=== PATIENT | female | born 1950 | race Caucasian/White ===

== ENCOUNTER 2022-12-20 11:49 | Inpatient (IN) | payer OTHER, MEDICARE ==
[~2022-12-20] VITALS: Ht 167.6 cm; Wt 69.6 kg
[2022-12-20] VITALS (14 sets, daily range): BP systolic 89–120; BP diastolic 53–105
[~2022-12-20 11:49] MED LIST: AMIT75 PO; ESOM20; Fiorinal1 EA PO; GABA300; LEVSOD112; LORA.5; MELO7.5; METO50ER; MONT10T; Oxycontin20 MG PO; PRED20; RISE35; SERT25; TOPI100
[2022-12-20 12:26] LABS: Hematocrit 33.8 % (33.0-51.0); Hemoglobin 12.4 g/dL (11.5-16.0); LYMPHOCYTES ABSOLUTE AUTO 0.51 K/mm3 (0.84-5.20); LYMPHOCYTES PERCENT AUTO 2 % (21-46); MONOCYTES ABSOLUTE AUTO 1.01 K/mm3 (0.16-1.47); MONOCYTES PERCENT AUTO 4 % (4-13); Mean Corpuscular HGB 33.9 pg (26.0-34.0); Mean Corpuscular HGB Conc 36.7 g/dL (31.5-36.5); Mean Corpuscular Volume 92 fL (80-100); Mean Platelet Volume 10.2 fL (9.1-12.4); Platelet Count 283 K/mm3 (150-400); RDW Coefficient Variation 12.5 % (11.7-14.2); RDW Standard Deviation 42.6 fL (35.1-46.3); Red Blood Cell Count 3.66 M/mm3 (3.80-5.20)
[2022-12-20 12:39] LABS: BASOPHILS ABSOLUTE AUTO 0.02 K/mm3 (0.00-0.23); BASOPHILS PERCENT AUTO 0 % (0-2); EOSINOPHILS ABSOLUTE AUTO 0.07 K/mm3 (0.00-0.68); EOSINOPHILS PERCENT AUTO 0 % (0-6); IMMATURE GRAN ABSOLUTE AUTO 0.65 K/mm3 (0.00-0.10); IMMATURE GRAN PERCENT AUTO 3 % (0-1); NEUTROPHILS ABSOLUTE AUTO 22.34 K/mm3 (1.96-9.15); NEUTROPHILS PERCENT AUTO 91 % (41-73)
[2022-12-20 12:56] LABS: Alanine Aminotransfer (ALT/SGP 40 U/L (12-78); Albumin, Blood 2.4 g/dL (3.4-5.0); Albumin/Globulin Ratio 0.6 (0.8-1.8); Alk Phos 281 U/L (50-136); Anion Gap 11 mmol/L (6-16); Aspartate Aminotrans (AST/SGOT 33 U/L (12-37); Bilirubin, Total 0.7 mg/dL (0.1-1.0); Blood Urea Nitrogen 44 mg/dL (8-24); Bun/Creatinine Ratio 34.9 (12.0-20.0); C-REACTIVE PROTEIN, EXT RANGE >19.000 mg/dL (0.000-0.300); CO2, Blood 21 mmol/L (21-32); Calcium, Blood 8.8 mg/dL (8.5-10.1); Chloride, Blood 98 mmol/L (98-108); Creatinine, Blood 1.26 mg/dL (0.40-1.00); Globulin, Blood 4.1 g/dL (2.2-4.0); Glomerular Filtration Rate 45 (60-); Glucose, Blood 111 mg/dL (70-99); Potassium, Blood 3.3 mmol/L (3.5-5.5); Sodium, Blood 130 mmol/L (136-145); Total Protein, Blood 6.5 g/dL (6.4-8.2)
[2022-12-20 13:37] LABS: BAND PERCENT MAN 9 % (0-8); BASOPHILS PERCENT MAN 0 % (0-2); EOSINOPHILS PERCENT MAN 0 % (0-6); LYMPHOCYTES ABSOLUTE MAN 0.49 K/mm3 (0.84-5.20); LYMPHOCYTES PERCENT MAN 2 % (21-46); MONOCYTES ABSOLUTE MAN 0.98 K/mm3 (0.16-1.47); MONOCYTES PERCENT MAN 4 % (4-13); NEUTROPHILS ABSOLUTE MAN 23.12 K/mm3 (1.96-9.15); SEG NEUTROPHILS PERCENT MAN 85 % (41-73); TOTAL CELLS COUNTED 100
[2022-12-20] MEDS ORDERED: IPRATROPIUM BRO15 ML INH (14:38)
[2022-12-20] MEDS ORDERED: ATORVASTATIN CA20 MG PO (14:39)
[2022-12-20] MEDS ORDERED: LEVOTHYROXINE112 M18 PO (14:40)
[2022-12-20] MEDS ORDERED: Buspirone HCl15 MG PO (14:40)
[2022-12-20] MEDS ORDERED: METO50ER PO (14:40)
[2022-12-20] MEDS ORDERED: ZOLOFT10013 PO ×2 (14:40→14:49)
[2022-12-20] MEDS ORDERED: Ventolin/Prove6.7 GM INH (14:44)
[2022-12-20] MEDS ORDERED: NURTEC ODT75 MG PO (14:48)
[2022-12-20 19:43] LABS: Magnesium, Blood 2.1 mg/dL (1.6-2.4)
[2022-12-20 19:49] LABS: Thyroid Stimulating Hormone 1.31 uIU/mL (0.360-4.800)
--- NOTE | 2022-12-20 20:45 | NUR ---
PATIENT ARRIVED TO ICU VIA GURNEY [facility], WITH KEVIN-SYNEPHERINE 20 MCG, AMIODARONE 1 MG/MIN INFUSING. PATIENT TRANSFERRED TO ICU BED USING SLIDER SHEET AND PLACED ON ICU MONITORS. PATIENT HAVING DIFFICULT TIME KEEPING ARMS AND LEGS STILL. PUREWICK REMOVED, PATIENT HAVING DIFFICULTY KEEPING IT IN PLACE. GUIDO CATH PLACED TO KEEP CLOSE EYE ON I&O DUE TO HYPOTENSION AND TO HELP KEEP WOUND TO LEFT BUTTOCK CLEAN AND DRY. WOUND TO LEFT BUTTOCK WITH PACKING HANGING OUT OF SMALL 1 CM INCISION, AREA AROUND WOUND RED, SWOLLEN AND WARM. WOUND DRAINING STRONG SMELLING PUSS AND SEROSANG FLUID, WOUND COVERED WITH FOAM DRESSING. CLARIFIED WITH REGGIE TOURIST CAMP ATTENDANT IV AND PO REPLACEMENT OF POTASSIUM PATIENT NOW IN SINUS RHYTHM, PLAN TO STOP AMIODARONE DRIP IF REMAINS IN SINUS RHYTHM AT CONTROLLED RATE
[2022-12-20 21:41] LABS: U Amphetamine Screen Not Detected; U Barbituate Screen Not Detected; U Benzodiazapine Screen Not Detected; U Buprenorphine Screen Not Detected; U Cannabinoids Screen Not Detected; U Cocaine Screen Not Detected; U Methadone Screen Not Detected; U Methamphetamine Screen Not Detected; U Opiates Screen Not Detected; U Oxycodone Screen Not Detected; U Phencyclidine Screen Not Detected; U Propoxyphene Screen Not Detected
[2022-12-20 21:53] LABS: Source, Urine Foley catheter
[2022-12-20 21:55] LABS: Bilirubin, Urine Neg (Neg); Blood, Urine 2+ (Neg); Glucose Qualitative, Urine Neg (Neg); Ketones, Urine Neg (Neg); Leukocyte Esterase, Urine 3+ (Neg); Nitrite, Urine Neg (Neg); Protein, Urine 2+ (Neg); Urobilinogen, Urine NORM (Normal)
[2022-12-20 21:57] LABS: Appearance, Urine Hazy (Clear); Color, Urine Yellow (P-Yellow)
[2022-12-20 22:02] LABS: White Blood Cells, Urine 50-100 /hpf (0-5)
[2022-12-20 22:03] LABS: Bacteria Many /hpf; Red Blood Cells, Urine 0-2 /hpf (0-2); Squamous Epithelial Cells Few /hpf (Few)
[2022-12-21] VITALS (38 sets, daily range): BP systolic 81–127; BP diastolic 44–90
[2022-12-21 03:20] LABS: Hematocrit 26.9 % (33.0-51.0); Hemoglobin 9.7 g/dL (11.5-16.0); Mean Corpuscular HGB 33.9 pg (26.0-34.0); Mean Corpuscular HGB Conc 36.1 g/dL (31.5-36.5); Mean Corpuscular Volume 94 fL (80-100); Mean Platelet Volume 9.8 fL (9.1-12.4); Platelet Count 224 K/mm3 (150-400); RDW Coefficient Variation 12.8 % (11.7-14.2); Red Blood Cell Count 2.86 M/mm3 (3.80-5.20); White Blood Cell Count 18.76 K/mm3 (4.00-11.30)
[2022-12-21 04:00] LABS: BAND PERCENT MAN 39 % (0-8); BASOPHILS PERCENT MAN 0 % (0-2); EOSINOPHILS PERCENT MAN 0 % (0-6); LYMPHOCYTES ABSOLUTE MAN 0.56 K/mm3 (0.84-5.20); LYMPHOCYTES PERCENT MAN 3 % (21-46); METAMYELOCYTE ABSOLUTE MAN 0.18 K/mm3 (0.00-0.00); METAMYELOCYTE PERCENT MAN 1 % (0-0); MONOCYTES ABSOLUTE MAN 0.37 K/mm3 (0.16-1.47); MONOCYTES PERCENT MAN 2 % (4-13); NEUTROPHILS ABSOLUTE MAN 17.63 K/mm3 (1.96-9.15); SEG NEUTROPHILS PERCENT MAN 55 % (41-73); TOTAL CELLS COUNTED 100
[2022-12-21 04:01] LABS: Albumin, Blood 1.7 g/dL (3.4-5.0); Albumin/Globulin Ratio 0.6 (0.8-1.8); Bilirubin, Total 0.8 mg/dL (0.1-1.0); Bun/Creatinine Ratio 38.9 (12.0-20.0); Calcium, Blood 7.1 mg/dL (8.5-10.1); Creatinine, Blood 0.8 mg/dL (0.40-1.00); Globulin, Blood 2.9 g/dL (2.2-4.0); Potassium, Blood 3.1 mmol/L (3.5-5.5); Total Protein, Blood 4.6 g/dL (6.4-8.2)
--- NOTE | 2022-12-21 06:37 | NUR ---
SUMMARY PATIENT SLEEPING OFF AND ON T/O NIGHT. AWAKENS EASILY TO SLIGHT STIMULI. CONTINUES TO HAVE FREQUENT ROCKING AND MOVEMENT TO HER ARMS AND LEGS. ABLE TO HOLD STILL WITH A LOT OF CONCENTRATION. KEVIN AND AMIO BOTH OFF. DRESSING TO BUTTOCK CD&I, BUT CONTINUES TO HAVE STRONG SMELL WHEN TURNED TO SIDE AND COVERS OFF.
--- NOTE | 2022-12-21 11:45 | NUR ---
PT A/O X4. HAS DISCOMFORT IN BUTTOCKS. PT GOT UP TO BSC TO HAVE A BM AND DRESSING TO BUTTOCKS BECAME SATURATED WITH FOUL SMELLING DISCHARGE FROM WOUND. DRESSING CHANGED. STILL HAS PACKING. PT IS 1-2 PERSON ASSIST OOB. PT REQUESTING TO KEEP HER GUIDO AT THIS MOMENT D/T WOUND. BP STABLE TODAY. HAS BEEN OFF PRESSORS SINCE RELAY SHOP SUPERVISOR. USES CALL LIGHT APPROPRIATELY. TRANSFERED TO MEDICAL FLOOR RM [phone]. REPORT GIVEN TO JACK CARTER.
--- NOTE | 2022-12-21 13:59 | NUR ---
ARRIVAL: PT ARRIVED @1130 VIA BED AND ABLE TO TRANSPORT WITH ONE PERSON ASSIST TO BED. IV'S FLUSHED W/O COMPLICATIONS. PT RECEIVING IV ZOSYN UPON ARRIVAL. ALL BELONGINGS SENT WITH PT. WOUND ASSESSED AND DRESSING CHANGE BY EMMA SMITH AND THIS RN. TELE IN PLACE. ABLE TO MAKE NEEDS KNOWN. WILL CONTINUE TO MONITOR.
--- NOTE | 2022-12-21 18:51 | NUR ---
SHIFT SUMMARY: DRESSING CHANGED ON BUTTOCK PER ORDERS. NEW PACKING AND MEPILEX IN PLACE. PT VERY WEAK TO BSC. IV IN RAC AND LWR FLUSHING WELL FOR IV ABX. PT SLIGHTLY HYPOTENSIVE. CALL LIGHT IN REACH. WILL CONTINUE TO MONITOR.
[2022-12-22 03:07] VITALS: BP 104/68
--- NOTE | 2022-12-22 03:50 | NUR ---
SHIFT SUMMARY. SHIFT HAS BEEN MOSTLY UNREMARKABLE. FOR MANY HOURS EARLY THIS MORNING, PT WAS VERY SOMNOLENT ALTHOUGH HAD DIFFICULT TIME SITTING STILL AND WAS NOT ABLE TO SLEEP MUCH. APPEARED RESTLESS. INQUIRED ABOUT PAIN MULTIPLE TIMES TO WHICH PT DENIED AND REFUSED PRN PAIN MEDICATIONS. PT REMAINED AOX3-4 AND WAS EASILY AROUSABLE BUT REMAINED RESTLESS AND AT THE SAME TIME LETHARGIC. AFTER REPOSITIONING EARLY THIS MORNING, AGAIN INQUIRED ABOUT PAIN TO WHICH PT REPORTED PAIN PRESENT AND REQUESTED PAIN MEDICATION. ADMINISTERED PRN OXYCODONE AFTER WHICH TIME PT HAS BEEN SLEEPING PEACEFULLY IN BED. WITH 2100 MEDICATIONS LAST NIGHT, ADMINISTERED PRN BEDTIME AMBIEN. WONDER IF AMBIEN HAD THIS NEGATIVE EFFECT ON PT CAUSING RESTLESSNESS. EITHER WAY, PT IS NOW RESTING PEACEFULLY IN BED AND SLEEPING SOUNDLY. HAS BEEN PLEASANT, COOPERATIVE WITH CARE THROUGHOUT. GUIDO CATHETER IN PLACE AND DRAINING WELL. DRESSING ON BACKSIDE REMAINS C/D/I AT THIS TIME.CHANGED ON DAY SHIFT PER REPORT. BED LOCKED IN LOWEST POSITION. CALL LIGHT LEFT WITHIN REACH.
[2022-12-22 05:18] LABS: Hematocrit 27.4 % (33.0-51.0); Hemoglobin 9.7 g/dL (11.5-16.0); Mean Corpuscular HGB 33.6 pg (26.0-34.0); Mean Corpuscular HGB Conc 35.4 g/dL (31.5-36.5); Mean Corpuscular Volume 95 fL (80-100); Mean Platelet Volume 9.5 fL (9.1-12.4); Platelet Count 212 K/mm3 (150-400); RDW Coefficient Variation 13.6 % (11.7-14.2); RDW Standard Deviation 47.8 fL (35.1-46.3); Red Blood Cell Count 2.89 M/mm3 (3.80-5.20); White Blood Cell Count 16.31 K/mm3 (4.00-11.30)
[2022-12-22 05:56] LABS: BAND PERCENT MAN 9 % (0-8); BASOPHILS PERCENT MAN 0 % (0-2); EOSINOPHILS PERCENT MAN 0 % (0-6); LYMPHOCYTES ABSOLUTE MAN 0.32 K/mm3 (0.84-5.20); LYMPHOCYTES PERCENT MAN 2 % (21-46); MONOCYTES ABSOLUTE MAN 0.32 K/mm3 (0.16-1.47); MONOCYTES PERCENT MAN 2 % (4-13); NEUTROPHILS ABSOLUTE MAN 15.65 K/mm3 (1.96-9.15); SEG NEUTROPHILS PERCENT MAN 87 % (41-73); TOTAL CELLS COUNTED 100
[2022-12-22 05:59] LABS: Albumin, Blood 1.8 g/dL (3.4-5.0); Albumin/Globulin Ratio 0.6 (0.8-1.8); Bilirubin, Total 0.8 mg/dL (0.1-1.0); Calcium, Blood 8.3 mg/dL (8.5-10.1); Creatinine, Blood 0.63 mg/dL (0.40-1.00); Globulin, Blood 3.1 g/dL (2.2-4.0); Potassium, Blood 3.7 mmol/L (3.5-5.5); Total Protein, Blood 4.9 g/dL (6.4-8.2)
[2022-12-22 07:54] VITALS: BP 100/85
--- NOTE | 2022-12-22 12:47 | NUR ---
WOUND CARE PROVIDED @1230. WOUND CLEANSED AND PACKED. MEPILEX IN PLACE.
[2022-12-22 15:24] VITALS: BP 122/83
--- NOTE | 2022-12-22 19:08 | NUR ---
SHIFT SUMMARY: PT EXTREMELY LETHARGIC THIS SHIFT. PT ABLE TO WAKE FOR MORNING MEDICATIONS BUT WOULD INSTANTLY FALL BACK ASLEEP. EASILY AROUSED BUT MUMBLED WITH SPEECH. WHEN ASKING ORIENTATION QUESTIONS, PT WAS A&O X3-4. COULD NOT REMEMBER DAY OF WEEK BUT KNEW IT WAS DECEMBER. HOSPITALIST AWARE. PT TOOK DOSE OF AMBIEN LAST NIGHT WHICH PT STATES SHE DOES NOT TAKE AT HOME. IV ABX GIVEN PER EMAR. LEFT GUIDO IN PLACE THIS SHIFT DUE TO EXTREME LETHARGY. WOUND ON L. BUTTOCK CHANGED TWICE THIS SHIFT. PT CONSTANTLY SHIFTING SELF IN BED AND MOVING LEGS WHICH RESULTS IN DRESSING COMING LOOSE. NO WOUND NURSE REST OF THE WEEK. CALL LIGHT IN REACH. BED IN LOWEST POSITION. REPORT GIVEN TO ONCOMING RN.
[2022-12-22 19:22] VITALS: BP 96/75
[2022-12-23] VITALS (34 sets, daily range): BP systolic 92–130; BP diastolic 59–99
--- NOTE | 2022-12-23 04:09 | NUR ---
SHIFT SUMMARY. SHIFT HAS BEEN MOSTLY UNREMARKABLE. PT REMAINS VERY SOMNOLENT THROUGHOUT SHIFT BUT IS MOSTLY EASILY AROUSABLE AND IS ORIENTEDX2 WHEN AWAKE. ABLE TO SAFELY TAKE MEDICATIONS, ANSWER QUESTIONS, FOLLOW DIRECTIONS WHEN AWAKE BUT WILL QUICKLY FALL BACK ASLEEP WHEN LEFT ALONE. APPEARS COMFORTABLE IN BED AND CONTINUES TO SAT WELL ON 1 L O2 VIA NC. NO CHANGE IN CONDITION THIS SHIFT. PT REPORTED PAIN EARLY IN SHIFT BUT HAS NOT SINCE. WELL MANAGED VIA EMAR. ABX ADMINISTERED ON SCHEDULE AND WITHOUT DIFFICULTY. PT WAS SPORADICALLY ALTHOUGH NOT CONSISTENTLY CHOKING ON THIN LIQUIDS EARLY IN SHIFT BUT WAS ALSO VERY SOMNOLENT AT TIME, HAVE NOT GIVEN FLUIDS SINCE. WILL MONITOR WHEN CONSUMING FLUIDS UNTIL SHIFT ENDS IN EVENT PROBLEM PERSISTS. GUIDO IN PLACE AND DRAINING WELL. NO COMPLAINTS OF ASSOCIATED PAIN. BED LOCKED IN LOWEST POSITION.CALL LIGHT LEFT WITHIN REACH.
[2022-12-23 05:15] LABS: Hemoglobin 10.3 g/dL (11.5-16.0); Mean Corpuscular HGB 33.3 pg (26.0-34.0); Mean Corpuscular HGB Conc 35.5 g/dL (31.5-36.5); Mean Corpuscular Volume 94 fL (80-100); NRBC ABSOLUTE 0.02 K/mm3 (0.00-0.02); NRBC Auto 0.1 /100 WBC (0.0-0.2); RDW Coefficient Variation 14.4 % (11.7-14.2); RDW Standard Deviation 49.6 fL (35.1-46.3); Red Blood Cell Count 3.09 M/mm3 (3.80-5.20); White Blood Cell Count 19.23 K/mm3 (4.00-11.30)
[2022-12-23 05:34] LABS: Albumin, Blood 1.8 g/dL (3.4-5.0); Albumin/Globulin Ratio 0.5 (0.8-1.8); Bilirubin, Total 0.9 mg/dL (0.1-1.0); Bun/Creatinine Ratio 41.5 (12.0-20.0); Calcium, Blood 8.3 mg/dL (8.5-10.1); Creatinine, Blood 0.67 mg/dL (0.40-1.00); Globulin, Blood 3.7 g/dL (2.2-4.0); Potassium, Blood 3.6 mmol/L (3.5-5.5); Total Protein, Blood 5.5 g/dL (6.4-8.2)
--- NOTE | 2022-12-23 05:36 | NUR ---
WHEN GOING TO GIVE 0600 THYROID MEDICATION, PATIENT WAS NOTICABLY AND SIGNIFICANTLY MORE LETHARGIC THAN IN HOURS PRIOR. UNABLE TO BE AROUSED TO DRINK WATER/TAKE MEDICATION. ATTEMPTED TO AROUSE TO ASSESS ORIENTATION BUT PT WOULD NOT AWAKE ENOUGH TO ANSWER QUESTIONS OR FOLLOW COMMANDS. CHECKED AND CHANGED WOUND DRESSING IT WAS NOT DRY. CALLED TO SHARE CONCERN WITH HOSPITALIST DR. MURRAY. EXPLAINED THAT PT IS MORE LETHARGIC THAN SHE WAS LAST NIGHT/EARLY THIS MORNING AND IS WAS NOT ABLE TO BE ADEQUATELY AROUSED FOR MEDICATION ADMINISTRATION/ORIENTATION ASSESSMENT. 2 L O2 REQUIRED TO MAINTAIN SATURATION. VITALS WNL OUTSIDE OF MILD TACHYCARDIA WHICH HAS BEEN THE CASE OVER TIME FOR HER. DR MURRAY REVIEWED CHART AND NOTED THAT THE LABS INDICATE SEPSIS AND THAT HER BEHAVIOR IS NOT COMPLETELY OUTSIDE OF REALM OF WHAT WOULD BE EXPECTED FOR SEPTIC SHOCK BUT THAT GIVEN HEAVY ABX DOSE PT SHOULD BE IMPROVING AND NOT DETERIORATING. TREVOR NOTED THAT PT HAS NOT HAD IMAGING OF AREA OR PROCEDURE PERFORMED SINCE SHE HAS BEEN HERE. DR MURRAY BELIEVES THAT PT REQUIRES IMAGING OF WOUND TO SEE HOW DEEP IT GOES AND IF THERE IS A DEEPER SOURCE OF SPESIS, AND IF THERE IS THAT A PROCEDURE MAY NEED TO BE PERFORMED TO EXCISE THE SOURCE OF INFECTION. DR MURRAY NOTED THAT HE WILL DISCUSS WITH DR ELVIA ESPARZA BUT THERE IS NOTHING ELSE TO BE DONE AT THIS TIME. WILL CONTINUE TO MONITOR AND INFORM HOSPITALIST OF ANY FURTHER CHANGES WITH PT.
[2022-12-23 06:32] LABS: BAND PERCENT MAN 6 % (0-8); BASOPHILS PERCENT MAN 0 % (0-2); EOSINOPHILS PERCENT MAN 0 % (0-6); LYMPHOCYTES ABSOLUTE MAN 1.34 K/mm3 (0.84-5.20); LYMPHOCYTES PERCENT MAN 7 % (21-46); MONOCYTES ABSOLUTE MAN 0.19 K/mm3 (0.16-1.47); MONOCYTES PERCENT MAN 1 % (4-13); NEUTROPHILS ABSOLUTE MAN 17.69 K/mm3 (1.96-9.15); SEG NEUTROPHILS PERCENT MAN 86 % (41-73); TOTAL CELLS COUNTED 100
[2022-12-23 06:38] LABS: Platelet Count 205 K/mm3 (150-400)
--- NOTE | 2022-12-23 08:04 | NUR ---
PATIENT OFF FLOOR TO CT AT 08
[2022-12-23 10:55] LABS: Source, Urine Clean Catch
[2022-12-23 11:23] LABS: Appearance, Urine Clear (Clear); Bilirubin, Urine Neg (Neg); Blood, Urine 4+ (Neg); Color, Urine Yellow (P-Yellow); Glucose Qualitative, Urine Neg (Neg); Ketones, Urine Neg (Neg); Leukocyte Esterase, Urine Neg (Neg); Nitrite, Urine Neg (Neg); Protein, Urine 2+ (Neg); Specific Gravity, Urine 1.015 (1.003-1.022); Urobilinogen, Urine NORM (Normal)
[2022-12-23 11:32] LABS: Mucus Light (0-Heavy); Squamous Epithelial Cells Rare /hpf (Few)
[2022-12-23 11:33] LABS: Amorphous Light (0-Heavy); Bacteria Rare /hpf; Red Blood Cells, Urine 25-50 /hpf (0-2); White Blood Cells, Urine 0-2 /hpf (0-5); Yeast/Fungi Urine Few /hpf
--- NOTE | 2022-12-23 13:26 | NUR ---
PATIENT OFF FLOOR TO SURGERY WITH EMMA SMITH VIA CART AT 1320 12/23/22, MARILOU LONG JUST PRIOR TO LEAVING.
--- NOTE | 2022-12-23 13:36 | NUR ---
PT BROUGHT TO [facility] ON GURNEY. 02 AT 5L VIA MASK. PT IS ONLY RESPONSIVE TO PAIN. PER AUGUST RN PT WAS HARD TO UNDERSTAND THIS AM ON 1ST ASSESSMENT AND WAS ORIENTED TO SELF. PT NOW ONLY RESPONDING TO STERNAL RUB. MONITORS PUT ON ON, IVF WIDE OPEN AND NARCAN GIVEN 1335 DR. SHANKAR AT FOR EVAL. PT IS NOW TALKING AND ANSWERING APPROPRIATELY PT IS STILL GROGGY. OK TO GIVE PT 250 ML BOLUS
--- NOTE | 2022-12-23 17:16 | NUR ---
ARRIVAL TO ICU PT ARRIVES TO ICU FROM OR. PT S/P DEBRIDEMENT OF LEFT BUTTOCK. PT ARRIVES INTUBATED. 7.0 ETT/22 AT [facility]. LUNGS CLEAR. SCANT THIN CLEAR SECRETIONS FROM ETT. VENT SETTINGS AC/VC 14/400/5/40%. PROPOFOL STARTED FOR SEDATION. RASS -4. SR, RATE 90'S. BP STABLE. WOUND TO L GLUT DRESSED FROM OR, CALCIUM ALGINATE, KERLEX AND TAPE. RECTAL TUBE IN PLACE. GUIDO PATENT, DRAINING ROSETTA URINE TO GRAVITY. PIV X 2. DR DESIR AND DR GAN ROUNDED. WILL CONTINUE TO MONITOR.
[2022-12-23 17:34] LABS: PCO2 Arterial 46.8 mmHg (35-45); PO2 Arterial 96.8 mmHg (80-100); pH Blood Arterial 7.19 (7.35-7.45)
--- NOTE | 2022-12-23 19:00 | NUR ---
AFIB PT HAD RUN OF AFIB c RVR FOR APPT [address] DESIR NOTIFED. PT SPONT RESOLVED AND RETURNED TO NSR RATE 70-80'S PRIOR TO ADMINSTRATION OF AMIODORONE. AMIODORONE HELD AT THIS TIME. DR DESIR AWARE.
--- NOTE | 2022-12-23 21:20 | NUR ---
ASSUMED CARE AT 1900 PATIENT IS INTUBATED AND SEDATED ON PROPOFOL. LOCALIZES TO PAIN AND MOVE ALL EXTREMITIES. MEDICATED FOR PAIN PER EMAR. 02 SATS 99% ON VENT RR 18, VENT SETTING AC VC 18/400/5/35%. LS CLEAR. HR SR 90s, BP STABLE. GUIDO PATENT AND DRAINING TO GRAVITY. RECTAL TUBE IN PLACE, MINIMAL LIQUID BROWN. OG TO LIS, SCANY OUTPUT. PATIENT REPOSITIIONED AND ORAL CARE DONE. SEE SHIFT ASSESSMENT FOR MORE INFORMATION.
[2022-12-24] VITALS (69 sets, daily range): BP systolic 90–164; BP diastolic 61–130
[2022-12-24 03:47] LABS: Hematocrit 24.5 % (33.0-51.0); Hemoglobin 8.5 g/dL (11.5-16.0); Mean Corpuscular HGB 33.6 pg (26.0-34.0); Mean Corpuscular HGB Conc 34.7 g/dL (31.5-36.5); Mean Corpuscular Volume 97 fL (80-100); Mean Platelet Volume 9.7 fL (9.1-12.4); NRBC ABSOLUTE 0.03 K/mm3 (0.00-0.02); NRBC Auto 0.2 /100 WBC (0.0-0.2); Platelet Count 152 K/mm3 (150-400); RDW Coefficient Variation 15.3 % (11.7-14.2); RDW Standard Deviation 53.9 fL (35.1-46.3); Red Blood Cell Count 2.53 M/mm3 (3.80-5.20); White Blood Cell Count 12.24 K/mm3 (4.00-11.30)
[2022-12-24 04:12] LABS: BAND PERCENT MAN 22 % (0-8); BASOPHILS PERCENT MAN 0 % (0-2); EOSINOPHILS PERCENT MAN 0 % (0-6); LYMPHOCYTES ABSOLUTE MAN 0.97 K/mm3 (0.84-5.20); LYMPHOCYTES PERCENT MAN 8 % (21-46); METAMYELOCYTE ABSOLUTE MAN 0.12 K/mm3 (0.00-0.00); METAMYELOCYTE PERCENT MAN 1 % (0-0); MONOCYTES PERCENT MAN 0 % (4-13); NEUTROPHILS ABSOLUTE MAN 11.13 K/mm3 (1.96-9.15); SEG NEUTROPHILS PERCENT MAN 69 % (41-73); TOTAL CELLS COUNTED 100
--- NOTE | 2022-12-24 06:26 | NUR ---
SHIFT SUMMARY PATIENT REMAINS INTUBATED AND SEDATED ON PROPOFOL. NO CHNAGES IN VENT SETTINGS. HR SR 90s-105. BP STABLE. MEDICATED FOR PAIN PRN. BANDAGE C/D/I TO LEFT BUTTOCKS. GUIDO PATENT AND DRAINING TO GRAVITY. RECTAL TUBE WITH SCANT OUTPUT. MEDICATED FOR PAIN FREQUENTLY THROUGH THE NIGHT. REPOSITION FLAT AND TO RIGHT SIDE TO KEEP PRESSURE OFF LEFT SIDE. NO ACUTE CHANGES
[2022-12-24 06:54] LABS: Albumin, Blood 1.5 g/dL (3.4-5.0); Albumin/Globulin Ratio 0.5 (0.8-1.8); Bilirubin, Total 0.9 mg/dL (0.1-1.0); Calcium, Blood 8.2 mg/dL (8.5-10.1); Creatinine, Blood 0.69 mg/dL (0.40-1.00); Globulin, Blood 3.2 g/dL (2.2-4.0); Phosphorus, Blood 3.5 mg/dL (2.5-4.9); Potassium, Blood 3.5 mmol/L (3.5-5.5); Total Protein, Blood 4.7 g/dL (6.4-8.2)
[2022-12-24 08:18] LABS: Base Excess Venous -7.3 mmol/L; PCO2 Venous 37.2 mmHg (38-42); pH Blood Venous 7.32 (7.34-7.37)
--- NOTE | 2022-12-24 17:33 | NUR ---
SUMMARY PT EXTUBATED AT 1220 TODAY. PT IS ABLE TO OPEN HER EYE'S BRIEFLY TO NAME BUT QUICKLY FALLS BACK TO SLEEP. PT STARTING TO BE MORE RESTLESS IN BED BUT DOES NOT RESPOND TO VERBAL WHEN ASKED IF IN PAIN. MOVES ALL EXTREMITIES SPONTANEOUSLY. DOWN TO 2L NC. WOUND DRESSING CLEAN AND INTACT. THIS AM PT WAS HAVING FREQUENT PAC'S AND POSSIBLEY GOING INTO AFIB AT TIMES FOR BRIEF PERIODS BUT THAT HAS STOPPED THIS AFTERNOON AND IS ST 110-120. DR. TOBAR MADE AWARE OF HR THIS AM. NO OTHER CHANGES THIS SHIFT.
[2022-12-24 20:14] LABS: Base Excess Venous -4.5 mmol/L; PCO2 Venous 35.9 mmHg (38-42); pH Blood Venous 7.37 (7.34-7.37)
--- NOTE | 2022-12-24 21:25 | NUR ---
ASSUMED CARE AT 1900 PATIENT LOCALIZES TO PAINFUL STIMULI, NO WORDS, UNABLE TO OPEN EYES OR FOLLOW COMMANDS. 02 SATS 98% ON 2L VIA NC, RR 20s, SNORING AT TIMES. VBG DONE AND IMPROVING. HR ST 120s, BP STABLE. GUIDO PATENT AND DRAINING TO GRAVITY. RECTAL TUBE IN PLACE, SCANT OUTPUT. DRESSING TO LEFT BUTTOCKS C/D/I. SEE SHIFT ASSESSMENT FOR MORE INFORMATION.
[2022-12-25] VITALS (33 sets, daily range): BP systolic 116–150; BP diastolic 79–114
[2022-12-25 04:07] LABS: Hematocrit 26.8 % (33.0-51.0); Hemoglobin 9.2 g/dL (11.5-16.0); Mean Corpuscular HGB 33.2 pg (26.0-34.0); Mean Corpuscular HGB Conc 34.3 g/dL (31.5-36.5); Mean Corpuscular Volume 97 fL (80-100); Mean Platelet Volume 10.1 fL (9.1-12.4); NRBC ABSOLUTE 0.14 K/mm3 (0.00-0.02); NRBC Auto 0.8 /100 WBC (0.0-0.2); Platelet Count 135 K/mm3 (150-400); RDW Coefficient Variation 15.2 % (11.7-14.2); Red Blood Cell Count 2.77 M/mm3 (3.80-5.20); White Blood Cell Count 16.97 K/mm3 (4.00-11.30)
[2022-12-25 04:54] LABS: Albumin, Blood 1.8 g/dL (3.4-5.0); Albumin/Globulin Ratio 0.5 (0.8-1.8); Bun/Creatinine Ratio 40.8 (12.0-20.0); Calcium, Blood 8.3 mg/dL (8.5-10.1); Creatinine, Blood 0.79 mg/dL (0.40-1.00); Globulin, Blood 3.6 g/dL (2.2-4.0); Potassium, Blood 3.7 mmol/L (3.5-5.5); Total Protein, Blood 5.4 g/dL (6.4-8.2)
[2022-12-25 05:26] LABS: BAND PERCENT MAN 1 % (0-8); BASOPHILS PERCENT MAN 0 % (0-2); EOSINOPHILS PERCENT MAN 0 % (0-6); LYMPHOCYTES ABSOLUTE MAN 0.84 K/mm3 (0.84-5.20); LYMPHOCYTES PERCENT MAN 5 % (21-46); METAMYELOCYTE ABSOLUTE MAN 0.33 K/mm3 (0.00-0.00); METAMYELOCYTE PERCENT MAN 2 % (0-0); MONOCYTES ABSOLUTE MAN 0.33 K/mm3 (0.16-1.47); MONOCYTES PERCENT MAN 2 % (4-13); NEUTROPHILS ABSOLUTE MAN 15.44 K/mm3 (1.96-9.15); SEG NEUTROPHILS PERCENT MAN 90 % (41-73); TOTAL CELLS COUNTED 100
--- NOTE | 2022-12-25 06:14 | NUR ---
SHIFT SUMMARY NO CHANGE IN MENTAL STATUS SINCE START OF SHIFT, OPENS EYES AND LOCALIZES TO PAIN. UNABLE TO FOLLOW COMMANDS. 02 SATS 97% ON 2L VIA NC. LS COARSE AT TIMES, NO SECRETIONS SUCTIONED, CHEST X RAY DONE. HR ST 120s, BP STABLE. WOUND DRESSING C/D/I. GUIDO PATENT AND DRAINING TO GRAVITY. RECTAL TUBE IN PLACE. PATIENT REPOSITIONED Q2 HOURS.
[2022-12-25 09:44] LABS: PCO2 Arterial 34.9 mmHg (35-45); PO2 Arterial 104 mmHg (80-100)
--- NOTE | 2022-12-25 10:58 | NUR ---
WOUND CARE TOOK DRESSING DOWN. CLEANSED WITH WOUND BRICK SETTER OPERATOR, NEW PHOTOS TAKEN, PACKED WITH CALCIUM ALGINATE, SECURED WITH 4X4'S THEN ABD PAD AND TAPE. PT MOANS WITH WOUND CARE.
--- NOTE | 2022-12-25 12:31 | NUR ---
DOBHOFF PLACED PER DR. GAN. CONFIRMED WITH XRAY BY DR. TOBAR AND OK TO USE. STARTED ON VHP AT 30ML/HR. SPOKE WITH DR. GAN ABOUT STARTING LACTULOSE HER AMMONIA IS ELEVATED, NEW ORDERS RECEIVED. PT TAKEN TO CT THIS AM FOR HEAD, CHEST, ABD, AND PELVIS. PT ONLY RESPONDS TO PAINFUL STIMULI WITH MOAN. ABG DONE AND UNREMARKABLE.
[2022-12-25 13:16] LABS: Hemoglobin 9.2 g/dL (11.5-16.0); Mean Corpuscular HGB 33.2 pg (26.0-34.0); Mean Corpuscular HGB Conc 34.1 g/dL (31.5-36.5); Mean Corpuscular Volume 98 fL (80-100); Mean Platelet Volume 10.6 fL (9.1-12.4); NRBC ABSOLUTE 0.18 K/mm3 (0.00-0.02); Platelet Count 129 K/mm3 (150-400); RDW Coefficient Variation 15.4 % (11.7-14.2); RDW Standard Deviation 54.4 fL (35.1-46.3); Red Blood Cell Count 2.77 M/mm3 (3.80-5.20); White Blood Cell Count 17.46 K/mm3 (4.00-11.30)
[2022-12-25 13:37] LABS: BAND PERCENT MAN 1 % (0-8); BASOPHILS PERCENT MAN 0 % (0-2); EOSINOPHILS PERCENT MAN 0 % (0-6); LYMPHOCYTES ABSOLUTE MAN 1.04 K/mm3 (0.84-5.20); LYMPHOCYTES PERCENT MAN 6 % (21-46); MONOCYTES ABSOLUTE MAN 0.52 K/mm3 (0.16-1.47); MONOCYTES PERCENT MAN 3 % (4-13); MYELOCYTE ABSOLUTE MAN 0.69 K/mm3 (0.00-0.00); MYELOCYTE PERCENT MAN 4 % (0-0); NEUTROPHILS ABSOLUTE MAN 15.19 K/mm3 (1.96-9.15); SEG NEUTROPHILS PERCENT MAN 86 % (41-73); TOTAL CELLS COUNTED 100
[2022-12-25 13:58] LABS: Albumin, Blood 1.9 g/dL (3.4-5.0); Albumin/Globulin Ratio 0.5 (0.8-1.8); Bilirubin, Total 1.1 mg/dL (0.1-1.0); Calcium, Blood 8.3 mg/dL (8.5-10.1); Creatinine, Blood 0.7 mg/dL (0.40-1.00); Globulin, Blood 3.5 g/dL (2.2-4.0); Potassium, Blood 3.5 mmol/L (3.5-5.5); Total Protein, Blood 5.4 g/dL (6.4-8.2)
--- NOTE | 2022-12-25 18:06 | NUR ---
SUMMARY PT IS ONLY RESPONSIVE TO PAINFUL STIMULI BY MOANING. VITALS HAVE BEEN STABLE. DOBHOFF PLACED FOR NUTRITION AND MEDS. TOLERATING TUBE FEEDING. LACTULOSE STARTED TODAY FOR INCREASED AMMONIA. ONLY SMALL AMT OF CLEAR LIQUID FROM RECTAL TUBE SO FAR. DUE TO WOUND RECTAL TUBE AND GUIDO ARE STILL NECESSARY. WOUND CARE DONE PER ORDERS. NEW PHOTOS TAKEN AND DR. TOTH CAME BY THIS AFTERNOON. DR. GAN WAS ABLE TO FIND AN ACCEPTING DOCTOR AT [facility] FOR COMPLEX WOUND MANAGEMENT. FAMILY IS AT BEDSIDE AND HAVE BEEN UPDATED BY DR. AGN.
--- NOTE | 2022-12-25 19:00 | NUR ---
ASSUMED CARE ASSUMED CARE OF PATIENT. PT CONTINUES TO BE RESPONSIVE ONLY TO NOXIOUS STIMULI. WITHDRAWS ALL EXTREMITIES TO PAIN. MINIMAL SPONTANEOUS MOVEMENT NOTED. MOANS OCCASIONALLY. NO OTHER VERBAL RESPONSE. MONITOR SHOWS ST, RATE 100-110s. BP STABLE. O2 2L NC- SATS STABLE. RESPIRATIONS ARE TACHYPNEIC AND USE OF ACCESSORY MUSCLES NOTED. RECTAL TUBE IN PLACE- NO STOOL YET. GUIDO PATENT AND DRAINING DARK YELLOW URINE. SACRAL DRESSINGS C/D/I AT THIS TIME. SEE SHIFT ASSESSMENT FOR FULL ASSESSMENT.
[2022-12-25 20:20] LABS: Hematocrit 26.7 % (33.0-51.0); Hemoglobin 9.1 g/dL (11.5-16.0); Mean Corpuscular HGB 33.6 pg (26.0-34.0); Mean Corpuscular HGB Conc 34.1 g/dL (31.5-36.5); Mean Corpuscular Volume 99 fL (80-100); NRBC ABSOLUTE 0.35 K/mm3 (0.00-0.02); NRBC Auto 2.2 /100 WBC (0.0-0.2); Platelet Count 119 K/mm3 (150-400); RDW Coefficient Variation 15.7 % (11.7-14.2); RDW Standard Deviation 56.9 fL (35.1-46.3); Red Blood Cell Count 2.71 M/mm3 (3.80-5.20); White Blood Cell Count 15.81 K/mm3 (4.00-11.30)
[2022-12-25 20:58] LABS: BAND PERCENT MAN 1 % (0-8); BASOPHILS PERCENT MAN 0 % (0-2); EOSINOPHILS PERCENT MAN 0 % (0-6); LYMPHOCYTES ABSOLUTE MAN 1.42 K/mm3 (0.84-5.20); LYMPHOCYTES PERCENT MAN 9 % (21-46); MONOCYTES ABSOLUTE MAN 0.31 K/mm3 (0.16-1.47); MONOCYTES PERCENT MAN 2 % (4-13); MYELOCYTE ABSOLUTE MAN 0.63 K/mm3 (0.00-0.00); MYELOCYTE PERCENT MAN 4 % (0-0); NEUTROPHILS ABSOLUTE MAN 13.43 K/mm3 (1.96-9.15); SEG NEUTROPHILS PERCENT MAN 84 % (41-73); TOTAL CELLS COUNTED 100
[2022-12-25 21:13] LABS: Albumin, Blood 1.8 g/dL (3.4-5.0); Albumin/Globulin Ratio 0.5 (0.8-1.8); Calcium, Blood 8.2 mg/dL (8.5-10.1); Creatinine, Blood 0.68 mg/dL (0.40-1.00); Globulin, Blood 3.5 g/dL (2.2-4.0); Potassium, Blood 3.4 mmol/L (3.5-5.5); Total Protein, Blood 5.3 g/dL (6.4-8.2)
[2022-12-26] VITALS (36 sets, daily range): BP systolic 123–157; BP diastolic 85–113
--- NOTE | 2022-12-26 00:45 | NUR ---
INCREASED RESP DISTRESS PT TACHYPNEIC, RR 30s. INCREASED USE OF ACCESSORY MUSCLES NOTED. LUNGS WITH FINE AND COARSE CRACKLES T/O. O2 2L NC- SATS STABLE. DR. LOVE NOTIFIED- NEW ORDERS RECEIVED TO STOP IV FLUIDS AND TO GIVE IV LASIX.
[2022-12-26 03:50] LABS: Hematocrit 30.7 % (33.0-51.0); Hemoglobin 10.5 g/dL (11.5-16.0); Mean Corpuscular HGB 33.4 pg (26.0-34.0); Mean Corpuscular HGB Conc 34.2 g/dL (31.5-36.5); Mean Corpuscular Volume 98 fL (80-100); Mean Platelet Volume 11.4 fL (9.1-12.4); NRBC ABSOLUTE 0.38 K/mm3 (0.00-0.02); Platelet Count 141 K/mm3 (150-400); RDW Coefficient Variation 15.5 % (11.7-14.2); RDW Standard Deviation 54.8 fL (35.1-46.3); Red Blood Cell Count 3.14 M/mm3 (3.80-5.20); White Blood Cell Count 19.25 K/mm3 (4.00-11.30)
[2022-12-26 04:12] LABS: BAND PERCENT MAN 5 % (0-8); BASOPHILS PERCENT MAN 0 % (0-2); EOSINOPHILS PERCENT MAN 0 % (0-6); LYMPHOCYTES ABSOLUTE MAN 2.31 K/mm3 (0.84-5.20); LYMPHOCYTES PERCENT MAN 12 % (21-46); METAMYELOCYTE ABSOLUTE MAN 0.38 K/mm3 (0.00-0.00); METAMYELOCYTE PERCENT MAN 2 % (0-0); MONOCYTES ABSOLUTE MAN 0.38 K/mm3 (0.16-1.47); MONOCYTES PERCENT MAN 2 % (4-13); MYELOCYTE ABSOLUTE MAN 0.38 K/mm3 (0.00-0.00); MYELOCYTE PERCENT MAN 2 % (0-0); NEUTROPHILS ABSOLUTE MAN 15.78 K/mm3 (1.96-9.15); SEG NEUTROPHILS PERCENT MAN 77 % (41-73); TOTAL CELLS COUNTED 100
[2022-12-26 04:13] LABS: Magnesium, Blood 1.7 mg/dL (1.6-2.4)
[2022-12-26 04:15] LABS: Albumin, Blood 2.1 g/dL (3.4-5.0); Albumin/Globulin Ratio 0.5 (0.8-1.8); Bilirubin, Total 1.3 mg/dL (0.1-1.0); Bun/Creatinine Ratio 38.2 (12.0-20.0); Calcium, Blood 8.3 mg/dL (8.5-10.1); Creatinine, Blood 0.89 mg/dL (0.40-1.00); Globulin, Blood 4.1 g/dL (2.2-4.0); Potassium, Blood 2.9 mmol/L (3.5-5.5); Total Protein, Blood 6.2 g/dL (6.4-8.2)
--- NOTE | 2022-12-26 06:05 | NUR ---
SHIFT SUMMARY CONTINUES TO BE RESPONSIVE ONLY TO NOXIOUS STIMULI. OCCASIONALLY MOANS, NO OTHER VERBAL RESPONSE. WITHDRAWS EXTREMITIES TO NOXIOUS STIMULI. MINIMAL SPONTANEOUS MOVEMENT NOTED. REPOSITIONED Q2H. BP STABLE. HR 120s THIS AM. TMAX 99.9F. O2 2L NC- SATS STABLE. CONTINUES WITH TACHYPNEA AND SLIGHTLY LABORED BREATHING. NT SUCTIONED ONCE DURING SHIFT- MODERATE AMOUNT WHITE SPUTUM. DOBHOFF WITH VITAL HIGH PROTEIN AT GOAL RATE OF 30MLS/HR. 30ML H20 FLUSH Q4H. RECTAL TUBE IN PLACE- NO DRAINAGE. GUIDO PATENT AND DRAINING TO GRAVITY- 4500 MLS TOTAL DURING SHIFT. LASIX 60MG IV GIVEN X 1 AND IVF STOPPED D/T INCREASE CRACKLES AND WHEEZING IN LUNGS. SACRAL/BUTTOCK DRSG D/I. RECEIVING KPHOS AND MAGNESIUM REPLACEMENTS THIS AM. WILL REPORT TO ONCOMING RN WHEN AVAILABLE.
--- NOTE | 2022-12-26 18:13 | NUR ---
SUMMARY PT MOANS TO PAINFUL STIMULI AND WILL WITHDRAW FROM PAIN. DIFFICULT TO DO PO CARE BECAUSE SHE CLAMPS MOUTH CLOSED. WILL MOVE HER HEAD SIDE TO SIDE SPONTANEOUSLY. DR. TOTH BY TO SEE PT. WOUND CARE DONE WITH HIM AT BEDSIDE. SIGNIFICANT TUNNELING IN LOWER PORTION OF WOUND. LOTS OF SLOUGH. SEE PHOTOS FROM 12/25/22. TOLERATING TUBE FEEDS. HAS RECTAL TUBE TO PROTECT WOUND. PT'S AMMONIA IS HIGH THEREFORE PT IS REQUIRING LACTULOSE. ONLY SM AMT OF CLEAR LIQUID FROM RECTAL TUBE TODAY. AWAITING A BED AT [facility] FOR COMPLEX WOUND MANAGEMENT.
[2022-12-26 19:21] LABS: Vancomycin, Trough 13.4 ug/mL (5.0-10.0)
--- NOTE | 2022-12-26 21:01 | NUR ---
ASSUMED CARE OF PT AT 1915 BEDSIDE REPORT RECIEVED FROM EMMA ZAMORA. PT OPENS EYES TO VOICE AND TURNS HEAD SIDE TO SIDE, DOES NOT FOLLOW ANY COMMANDS. IS ON THE PIPER INSTALLER, V/S STABLE, ST WITH OCCASIONAL PVC'S. 2L NC TO KEEP O2 SAT > 94%. LUNGS COARSE/DIM BASES. DOBHOFF IN PLACE, VITAL HP RUNNING AT 30ML/HR (GOAL). DIETARY CONSULT IN, MEDICATIONS ADMINISTERED VIA DOBHOFF, PT TOLERATED WELL. BS HYPOACTIVE, RECTAL TUBE IN PLACE, SMALL AMOUNT OF CLEAR LIQUID VISUALIZED IN TUBE. GUIDO IN PLACE DRAINING CLEAR YELLOW URINE. REPOSITIONED WITH ATTEMPT TO KEEP PRESSURE OFF OPEN AREA OF BUTTOCK. DEPENDENT EDEMA NOTED TO BILAT ARMS, PURPLE DISCOLORATION TO TIPS OF TOES WITH CAP REFILL > [address] OVER DEBRIDED AREA OF BUTTOCK. PIV LAC SL, FLUSHES WELL. PG RIGHT UPPER ARM, INFUSING. NO FAMILY AT BEDSIDE.
[2022-12-27] VITALS (27 sets, daily range): BP systolic 107–148; BP diastolic 76–109
[2022-12-27 03:56] LABS: BASOPHILS ABSOLUTE AUTO 0.07 K/mm3 (0.00-0.23); BASOPHILS PERCENT AUTO 0 % (0-2); EOSINOPHILS PERCENT AUTO 0 % (0-6); Hematocrit 31.4 % (33.0-51.0); Hemoglobin 10.6 g/dL (11.5-16.0); IMMATURE GRAN ABSOLUTE AUTO 0.54 K/mm3 (0.00-0.10); IMMATURE GRAN PERCENT AUTO 3 % (0-1); LYMPHOCYTES ABSOLUTE AUTO 1.58 K/mm3 (0.84-5.20); LYMPHOCYTES PERCENT AUTO 10 % (21-46); MONOCYTES ABSOLUTE AUTO 0.75 K/mm3 (0.16-1.47); MONOCYTES PERCENT AUTO 5 % (4-13); Mean Corpuscular HGB 32.7 pg (26.0-34.0); Mean Corpuscular HGB Conc 33.8 g/dL (31.5-36.5); Mean Corpuscular Volume 97 fL (80-100); NEUTROPHILS ABSOLUTE AUTO 13.45 K/mm3 (1.96-9.15); NEUTROPHILS PERCENT AUTO 82 % (41-73); NRBC Auto 1.8 /100 WBC (0.0-0.2); Platelet Count 156 K/mm3 (150-400); RDW Coefficient Variation 14.9 % (11.7-14.2); RDW Standard Deviation 52.4 fL (35.1-46.3); Red Blood Cell Count 3.24 M/mm3 (3.80-5.20); White Blood Cell Count 16.39 K/mm3 (4.00-11.30)
[2022-12-27 04:19] LABS: Magnesium, Blood 1.8 mg/dL (1.6-2.4)
[2022-12-27 04:33] LABS: Albumin, Blood 1.7 g/dL (3.4-5.0); Albumin/Globulin Ratio 0.5 (0.8-1.8); Bilirubin, Total 1.1 mg/dL (0.1-1.0); Calcium, Blood 7.9 mg/dL (8.5-10.1); Creatinine, Blood 0.72 mg/dL (0.40-1.00); Globulin, Blood 3.3 g/dL (2.2-4.0); Phosphorus, Blood 1.7 mg/dL (2.5-4.9); Potassium, Blood 2.4 mmol/L (3.5-5.5)
--- NOTE | 2022-12-27 05:59 | NUR ---
END OF SHIFT SUMMARY PT REMAINS UNRESPONSIVE EVEN TO PAINFUL STIMULI. OPENS EYES SPONTANEOUSLY. V/S STABLE, CONTINUES 2L VIA NC. DOBHOFF IN PLACE, VITAL HP CONTINUES AT 30ML/HR (GOAL). GUIDO PATENT AND DRAINING CLEAR YELLOW URINE. SKIN UNCHANGED, DRESSING IN PLACE TO LEFT BUTTOCK. PT TURNED EVERY 2 HOURS TO MAINTAIN EXISTING SKIN INTEGRITY AND FOR COMFORT. CALL PLACED TO LEGACY BY PHARMACIST AIDE TO INQUIRE ABOUT BED AVAILABILITY, CONFIRMATION MADE THAT PT IS ON WAIT LIST BUT NO BEDS AVAILABLE. PG IN PLACE, UNABLE TO DRAW, BRAND MARKETING COORDINATOR COLLECTED AM LABS. MAG 1.8, K 2.4, OC CONTATED, ORDERS RECEIVED AND REPLACEMENT STARTED ORDERED. NO FAMILY AT BEDSIDE.
[2022-12-27 11:13] LABS: PCO2 Arterial 44.2 mmHg (35-45); PO2 Arterial 102 mmHg (80-100)
--- NOTE | 2022-12-27 12:36 | NUR ---
LAYA HAS BEEN BREATHING SHALLOW AND GURGLY SINCE MY ASSUMPTION OF CARE THIS AM. SHE HAS NOT RESPONDED BY LOOKING AT SOUND, FOLLOWING COMMANDS, RESISTING MOVEMENT. SHE HAS BEEN DIFFICULT TO GET TO COUGH, LOTS OF ORAL CARE COMPLETED. PT IS CLAMMY AND DIAPHORETIC, SKIN IS PALE, TIPS OF TOES PURPLE. PT IS FLACCID WITH TURNS, ARMS ELEVATED, PT ROTATED BETWEEN HARD RIGHT TURN AND SOFT RIGHT TURN TO KEEP HER OFF THE LEFT BUTTOCKS. SHE WAS GETTING TF VIA DOBBHOFF, IT HAS CLOGGED AND EFFORTS MADE TO UNCLOG. GUIDO WITH GOOD OUTPUT, RECTAL TUBE WITH AIR RETURN ONLY. GRANDSON HERE TO VISIT, PALLIATIVE CARE RN EDWIN, PHONED TO SON. NIECE AND NEPHEW HERE NOW.
--- NOTE | 2022-12-27 12:54 | NUR ---
According to ICU staff and Dr. Pang, pt has no gag reflex when suction done. Pt is non-responsive, and dental hygienist noted no response to commands, does bite down on tools but no meaninful response. Spoke by phone with pt's son Marco, who is pt's decision maker. He states he noted pt not responsive during visit on Tuesday, and request changing pt's code status to DNR/DNI. He requests a call from Dr. Pang around 1530 today, as he would like to speak with his and daughter now, and then discuss making pt's status "comfort care". Received v/o from Dr. Pang to change pt's code status, and she states she will call pt's son Marco at 1530 today. ENERGY AUDIT ADVISOR Ying also notified.
--- NOTE | 2022-12-27 14:33 | NUR ---
LAYA CONTINUES TO NOT RESPOND. SHE HAS BEEN TURNED AND REPOSITIONED. FAMILY HAS BEEN AT BEDSIDE. K+PHOS STILL INFUSING, ALTHOUGH LAB WAS ALREADY DRAWN. REMAINS SLIGHTLY LOW. FAMILY MADE AWARE OF THE EXTENT OF HER INJURY TO HER BUTTOCKS, ASKING QUESTIONS ABOUT WHETHER SHE IS MEDICATED OR NOT. PT HAS BEEN OFF SEDATION SINCE TUESDAY MORNING PRIOR TO EXTUBATION.
--- NOTE | 2022-12-27 15:20 | NUR ---
DRESSING CHANGE: WOUND TO LEFT BUTTOCKS UNDRESSED, CLEANED AND REDRESSED WITH KERLIX AND ABD. PT MOANED MORE THAN SHE HAS THUS FAR, SHE OPENED HER EYES AND LOOKED AROUND BUT DID NOT MAKE ANY WORDS OR MAKE EYE CONTACT WITH FAMILY MEMBER AT BEDSIDE. THE WOUND IS TUNNELING AT THE DISTAL TIP NEAR THE LABIA ALONG THE COCCYX LINE. THE WOUND HAS SLIGHT ODOR AND CONTINUES TO HAVE YELLOW/GREEN DRAINAGE ON THE GAUZE THAT WAS REMOVED. FAMILY TO SPEAK WITH AROUND 1530 FOR UPDATE.
--- NOTE | 2022-12-27 17:04 | NUR ---
Return call made to Marco, pt's son as requested by Dr. Pang. Marco states he and his siblings have made the choice to change pt's status to comfort, and if able, discharge with hospice. Unsure at this time if there is a payer source avaiable for facility with hospice, will discuss with care managers in the morning. In the meantime, placing pt on Comfort Care. Updated VARNISHING UNIT OPERATOR Steffanie, and Dr. Pang.
--- NOTE | 2022-12-27 17:17 | NUR ---
PT IS TRANSITIONING TO COMFORT CARE, DOBHOFF REMOVED, IV'S DISCONNECTED AND SALINE LOCKED.
--- NOTE | 2022-12-27 18:14 | NUR ---
LAYA HAS BEEN PLACED ON COMFORT MEASURES, SHE CONTINUES TO BREATHE SHALLOW WITH MOIST CONGESTION PRESENT. DIFFICULT TO GET A GAG WITH SUCTIONING, MOUTH IS DRY. ORAL CARE BEING DONE Q4H AND PRN, MAINTAINING PT ON THE RIGHT SIDE TO KEEP OFF THE WOUND. GUIDO AND RECTAL TUBE REMAIN IN PLACE FOR PT COMFORT.
--- NOTE | 2022-12-27 19:42 | NUR ---
ASSUMED CARE OF PT AT 1915 BEDSIDE REPORT RECEIVED FROM EMMA KNOX. PT IS NOW ON COMFORT CARE. NO FAMILY AT BEDSIDE CURRENTLY, SON IN [place] BUT EXTENDED FAMILY PLANS TO COME BACK TOMORROW TO VISIT. PT CONTINUES TO BE UNRESPONSIVE, REGULAR RESPIRATORY RATE AND RHYTHM. GUIDO AND RECTAL TUBE IN PLACE. DOBHOFF D/C'D DUE TO BEING CLOGGED AND COMFORT CARE ORDERS. WOUND DRESSING CHANGED TODAY ON DAY SHIFT. SOME FAMILY IN TO BEDSIDE EARLIER TODAY. ALL FAMILY IN AGREEANCE WITH COMFORT CARE PLANS. CASE MANAGEMENT CONSULT NEEDED TO DETERMINE PLANS FOR D/C HOME WITH HOSPICE PT MAY NOT BE IMMINENT IN NEXT 24-48 HOURS. TRANSFER ORDERS TO MEDICAL FLOOR PLACED, TRANSFER PENDING BED AVAILABILITY.
--- NOTE | 2022-12-27 23:25 | NUR ---
PT TRANSFERRED TO ROOM 302 AT 2230. REPORT GIVEN TO ACCEPTING RN, PT CONDITION REMAINS UNCHANGED. MOVED OVER TO MEDICAL BED, ALL BELONGINGS SENT WITH PT. NO FAMILY AT BEDSIDE. NOTIFIED FAMILY MARIA EUGENIA OF PT'S TRANSFER.
--- NOTE | 2022-12-27 23:44 | NUR ---
2211 PT ARRIVED TO ROOM 302 FROM ICU4 VIA BED. LUNGS ARE DIMINISHED. NO APPARENT SIGNS OF SOB BUT PT DOES APPEAR SOMEWHAT RESTLESS AND IS MOVING HER HEAD FROM SIDE TO SIDE. DRESSING ON BOTTOM IS C/D/I. EDEMA IN HANDS AND UE'S. RECTAL TUBE IN PLACE WITH NOTHING IN THE BAG AT THIS TIME. GUIDO IN PLACE WITH CLEAR SLIGHTLY DARK YELLOW URINE. WILL GIVE PT SOME ROXANOL AND EVAL FOR EFFECT. NO OTHER APPARENT SIGNS OF DISTRESS. CALL LIGHT IS IN REACH. BED ALARM IS ON.
--- NOTE | 2022-12-28 00:30 | NUR ---
PT LYING IN BED, EYES CLOSED, APPEARS TO BE RESTING. NO APPARENT SIGNS OF DISTRESS. CALL LIGHT IS IN REACH.
--- NOTE | 2022-12-28 03:04 | NUR ---
0200 PT LYING IN BED, EYES CLOSED, APPEARS TO BE RESTING. NO APPARENT SIGNS OF DISTRESS. CALL LIGHT IS IN REACH. BED ALARM IS ON.
--- NOTE | 2022-12-28 05:30 | NUR ---
0400 PT LYING IN BED, EYES CLOSED, APPEARS TO BE RESTING. BREATHING IS EVEN, UNLABORED. NO APPARENT SIGNS OF DISTRESS. CALL LIGHT IS IN REACH. BED ALARM IS ON.
--- NOTE | 2022-12-28 05:31 | NUR ---
PT IS VERBALLY UNRESPONSIVE, SHE DOES OPEN HER EYES OCCASIONALLY AND SHE MOVES HER HEAD FROM SIDE TO SIDE WHEN RESTLESS. PT GIVEN ROXANOL X 2 FOR RESTLESSNESS AND POSSIBLE AIR HUNGER. PT HAS DRESSING ON L BUTTOCK, C/D/I. GUIDO WITH CLEAR SLIGHTLY DARK YELLOW URINE. RECTAL TUBE WITH THE BAG STILL HAVING NO OUT PUT.
--- NOTE | 2022-12-28 05:33 | NUR ---
PT LYING IN BED, EYES CLOSED, APPEARS TO BE RESTING. BREATHING IS EVEN, UNLABORED. NO APPARENT SIGNS OF DISTRESS. CALL LIGHT IS IN REACH. BED ALARM IS ON. NO OTHER CHANGES THIS SHIFT.
--- NOTE | 2022-12-28 09:41 | NUR ---
Pt resting in bed with her eyes closed. Pt is non responsive and appears comfortable with no S/S of distress at this time. No visitors or family at bedside. Spoke with TALISHA Chavira and discussed case. Palliative Care will remain available
--- NOTE | 2022-12-28 13:34 | NUR ---
Spiritual Care Visit. Pt. is on comfort care and is mostly non responsive. Grandniece is present and welcomes my visit. Grand niece shares that Pt. is of descent. facilitated a life review. Listened with empathy, interest and a calming presence. Grandniece verbalizes an expectation that Pt. will be at our facility until the Pt. passes, and that she expects other family members to come visit. Grandniece verbalized gratitude for the spiritual care visit. Will remain available to the family as needed.
--- NOTE | 2022-12-28 18:43 | NUR ---
SHIFT SUMMARY PT RESPONDING TO VERBAL STIMULATION WITH SOME MOANING. PT MEDICATED FOR PAIN AND ANXIETY PER EMAR. SHELLY HARDY CONSULTED TO VERIFY THAT PATIENT APPEARED COMFORTABLE. PT TACHYPNIC WITH RESPIRATIONS 28-32 BREATHS PER MINUTE. DRESSING CHANGED THIS SHIFT. TURN Q2. BED IN LOW POSITION, CALL LIGHT WITHIN REACH. NIECES AT BEDSIDE FOR MOST OF THE DAY.
--- NOTE | 2022-12-29 10:51 | NUR ---
Comfort Care Visit Spoke with Primary RN Leonie and discussed case. Pt resting in bed with her eyes closed. Pt remains non responsive and appears comfortable with no S/S of distress at this time. Pt's lenore Lopez at bedside. Offered therapeutic listening and answered questions. Niece inquires about morphine drip for Pt. Gentle education on break through medications are still managing Pt's pain. Discussed risk vs benefit of SACK SEWER. Niece agreeable for continued breakthrough pain medication. Continued therapeutic listening. Spoke with RN Entry Level Financial Analyst Dr Poly Crawley, and discussed case. Called and spoke with Pt's son Marco, provided update and reviewed plan of care. Marco agreeable for continued breakthrough medication. Discussed potential home with hospice and inquired if family could be at Pt's home for hospice. Son Marco reports he will speak with family for availability as he states he is not available due to living in [place]. Son expresses appreciation and reports no other concerns at this time. Palliative Care will remain available
--- NOTE | 2022-12-29 19:24 | NUR ---
SHIFT SUMMARY PT RESPONDING TO VERBAL AND TACTILE STIMULATION WITH MOVING HEAD AND MOANING AT TIMES. PT MEDICATED FOR PAIN PER EMAR. FAMILY PRESENT AT BEDSIDE THROUGHOUT THE DAY. PT HAD COMPLETE BED BATH. POWERGLIDE TO TASNEEM PATENT AND SALINE LOCKED. DRESSING CHANGED, CDI. BED IN LOW POSITION, CALL LIGHT WITHIN REACH.
--- NOTE | 2022-12-30 04:28 | NUR ---
PT WAS UNRESPONSIVE AT START OF SHIFT AND WOULD ONLY MOAN. FAMILY AT BEDSIDE. PT TREATED PER EMAR TO KEEP COMFORTABLE. PT PASSED AT 0058 AND WAS PICKED UP AT 0425. THROUGH CARE PT WAS REPOSITIONED EVERY TWO HOURS. IGNITION RISK ASSESSMENT WAS COMPLETED WITH HOURLY ROUNDING.
== END 2022-12-30 00:58 | DRG 853 ==
LOC: ER 11:49 → MEDS 16:53 → ICUE 16:53 → MEDS 12-21 11:29 → ICUE 12-23 16:30 → MEDS 12-27 22:39
PROVIDERS: Family Medicine; Internal Medicine Critical Care Medicine; Nurse Practitioner Acute Care; Student in an Organized Health Care Education/Training Program; ADMIT Hospitalist
PROC: 3E033XZ Introduction of Vasopressor into Peripheral Vein, Percutaneous Approach (ICD-10-PCS; 2022-12-20)
PROC: 0H98XZZ Drainage of Buttock Skin, External Approach (ICD-10-PCS; 2022-12-20)
PROC: 0DH67UZ Insertion of Feeding Device into Stomach, Via Natural or Artificial Opening (ICD-10-PCS; 2022-12-20)
PROC: 5A1935Z Respiratory Ventilation, Less than 24 Consecutive Hours (ICD-10-PCS; 2022-12-20)
PROC: 0T9B70Z Drainage of Bladder with Drainage Device, Via Natural or Artificial Opening (ICD-10-PCS; 2022-12-20)
PROC: 0KBP0ZZ Excision of Left Hip Muscle, Open Approach (ICD-10-PCS; 2022-12-23)
PROC: 3E03329 Introduction of Other Anti-infective into Peripheral Vein, Percutaneous Approach (ICD-10-PCS; principal; 2022-12-25)
PROC: 4A133R1 Monitoring of Arterial Saturation, Peripheral, Percutaneous Approach (ICD-10-PCS; 2022-12-25)
DX: A41.9 Sepsis, unspecified organism (principal); G92.8 Other toxic encephalopathy; K72.00 Acute and subacute hepatic failure without coma; R65.21 Severe sepsis with septic shock; J95.821 Acute postprocedural respiratory failure; L03.317 Cellulitis of buttock; E87.0 Hyperosmolality and hypernatremia; N17.9 Acute kidney failure, unspecified; Z66 Do not resuscitate; I96 Gangrene, not elsewhere classified; L02.31 Cutaneous abscess of buttock; Z51.5 Encounter for palliative care; R79.89 Other specified abnormal findings of blood chemistry; E87.6 Hypokalemia; E83.39 Other disorders of phosphorus metabolism; J44.9 Chronic obstructive pulmonary disease, unspecified; I10 Essential (primary) hypertension; E11.9 Type 2 diabetes mellitus without complications; F32.A Depression, unspecified; K21.9 Gastro-esophageal reflux disease without esophagitis; E03.9 Hypothyroidism, unspecified; I48.0 Paroxysmal atrial fibrillation; F17.210 Nicotine dependence, cigarettes, uncomplicated; E78.5 Hyperlipidemia, unspecified; D64.9 Anemia, unspecified; D69.6 Thrombocytopenia, unspecified; B96.89 Other specified bacterial agents as the cause of diseases classified elsewhere; B95.61 Methicillin susceptible Staphylococcus aureus infection as the cause of diseases classified elsewhere; Z79.82 Long term (current) use of aspirin; Z79.899 Other long term (current) drug therapy; Z90.710 Acquired absence of both cervix and uterus; Z98.890 Other specified postprocedural states; Z79.51 Long term (current) use of inhaled steroids; Z88.2 Allergy status to sulfonamides; Z88.1 Allergy status to other antibiotic agents; Z88.8 Allergy status to other drugs, medicaments and biological substances; Z79.02 Long term (current) use of antithrombotics/antiplatelets; Z79.891 Long term (current) use of opiate analgesic; Z79.811 Long term (current) use of aromatase inhibitors; Z78.1 Physical restraint status
CPT/HCPCS: 10060; 31720; 36415; 36600; 51703; 70450; 71045; 71250; 74176; 80053; 80202; 81001; 82140; 82330; 82803; 82947; 83605; 83615; 83735; 84100; 84132; 84443; 85025; 85651; 86140; 87040; 87070; 87077; 87086; 87106; 87186; 87205; 88304; 93005; 93010; 94002; 94003; 94640; 94664; 94760; 94762; 96365-59; 96367-59; 96375-59; 99285-25; A9270; C1751; J0282; J0696; J1100; J1170; J1650; J1815; J1940; J2060; J2185; J2270; J2310; J2371; J2405; J2543; J2704; J2930; J3010; J3370; J3475; J3480; J7030; J7040; J7042; J7050; J7060; J7070; J7120